=== PATIENT | female | born 1945 | race Caucasian/White ===

== ENCOUNTER 2021-06-08 10:33 | Inpatient (IN) ==
--- NOTE | 2021-06-08 12:07 | XRay Report ---
XR chest 1V portable CLINICAL HISTORY: Atypical chest pain COMPARISON STUDY: None FINDINGS: The heart is enlarged. There is aortic tortuosity/ectasia. There is a small right pleural e ffusion with associated right basilar parenchymal opacities. There is mild elevation of interstitium. An element of mild pulmonary vascular congestion cannot be excluded. Arthritic changes are present w ithin the shoulders with narrowing of the humeral acromial distances suggesting chronic rotator cuff tear/degeneration[ IMPRESSION: 1. Cardiomegaly 2. Small right pleural effusion with associated right basilar atelectasis/consolidation 3. Mild elevation of interstitium. Correlate clinically for evidence of mild pulmonary vascular conge stion ACT 112: Negative or not required by law. Electronically signed by: Myles Stallworth M.D. 06/08/2021 12:05 PM
[2021-06-08 12:42] LABS: Basophils # (auto) 0.02 K/uL (0-0.2); Basophils % (auto) 0.2 %; Eosinophils # (auto) 0.05 K/uL (0-0.5); Eosinophils % (auto) 0.5 %; Hematocrit (blood only) 45.9 % (37-47); Hemoglobin 14.8 g/dL (12.0-16.0); Immature Granulocytes # (auto) 0.01 K/uL (0.00-0.02); Immature Granulocytes % (auto) 0.1 %; Lymphocytes # (auto) 2.37 K/uL (1.2-3.4); Lymphocytes % (auto) 23.7 %; Mean Corpuscular Hemoglobin 32.1 pg (25-34); Mean Corpuscular Hgb Conc 32.2 g/dL (32-36); Mean Corpuscular Volume 99.6 fL (80-100); Monocytes # (auto) 0.68 K/uL (0.11-0.59); Monocytes % (auto) 6.8 %; Neutrophils # (auto) 6.85 K/uL (1.4-6.5); Neutrophils % (auto) 68.7 %; Platelet Count 360 K/uL (130-400); RDW Coefficient of Variation 14.3 % (11.5-14.5); Red Blood Count 4.61 M/uL (4.2-5.4); White Blood Count 9.98 K/uL (4.8-10.8)
[2021-06-08 12:54] LABS: Prothrombin Time 10.1 Seconds (9.0-12.0)
[2021-06-08 13:02] LABS: BUN Creatinine Ratio 18.5 (10-20); Bilirubin Direct 0.2 mg/dl (0-0.2); Calcium 9.9 mg/dl (8.5-10.1); Creatinine Clr Calc Pharmacy 45.2 ml/min; Est GFR (African American) 78.8 ml/min; Magnesium 2.4 mg/dl (1.8-2.4); Potassium 4.4 mmol/L (3.5-5.1)
[2021-06-08 13:10] LABS: Bilirubin,Total 0.9 mg/dl (0.2-1); Globulin 4.1 gm/dl (2.5-4.0); Phosphorus 3.2 mg/dl (2.5-4.9); Total Protein 8.1 gm/dl (6.4-8.2); Troponin I 0.03 ng/ml (0-0.045)
--- NOTE | 2021-06-08 14:05 | Electrocardiogram Report ---
Test Reason : Blood Pressure : / mmHG Vent. Rate : 083 BPM Atrial Rate : 083 BPM P-R Int : 162 ms QRS Dur : 122 ms QT Int : 400 ms P-R-T Axes : 035 -65 090 degrees QTc Int : 470 ms Sinus rhythm with Premature atrial complexes Possible Left atrial enlargement Left axis deviation Inferior infarct , age undetermined Anterolateral infarct , age undetermined Non-specific intra-ventricular conduction delay Abnormal ECG No previous ECGs available Confirmed by Ervin Burgos ([id number]) on 06/08/2021 2:05:01 PM Referred By: REFERRED SELF Confirmed By:Ervin Burgos
[2021-06-08] MEDS ORDERED: ALPRAZolam 0.25 MG TABLET PO STA (14:23)
[2021-06-08] MEDS ORDERED: HYDROCODONE/ACETAMOPHEN 5/325MG TAB PO STA (14:33)
[2021-06-08] MEDS ORDERED: ALPRAZolam 0.5 MG TABLET PO STA (14:47)
[2021-06-08] MEDS ORDERED: ALPRAZolam 0.5 MG TABLET ONE (14:48)
[2021-06-08] MEDS ORDERED: OPTIRAY 320 125ml IV ONE (15:31)
--- NOTE | 2021-06-08 15:38 | CT Scan Report ---
CT ANGIOGRAM OF THE CHEST CLINICAL HISTORY: Shortness of breath. Possible pulmonary embolism COMPARISON STUDY: Chest x-ray dated 06/08/2021 TECHNIQUE: Following the IV administration of 118 mL of Optiray, CT angiogram of the thorax was perfo rmed from the thoracic inlet to the lung bases utilizing the pulmonary embolus protocol. Images are r eviewed in the axial, sagittal, and coronal planes. IV contrast was administered without complication . MIP imaging was performed. A dose lowering technique was utilized adhering to the principles of [place]. CT DOSE: 278.95 mGy.cm FINDINGS: No pathologically enlarged axillary mediastinal or hilar lymph nodes were visualized. There is ectasia of descending thoracic aorta which measures 38 mm. There are no pulmonary artery filling defects to indicate acute pulmonary embolism. The heart is enlarged. Postsurgical changes involve the aortic valve. There is reflux of contrast int o the inferior vena cava and hepatic veins suggesting elevated right heart pressures. There is a smal l right pleural effusion and trace left pleural effusion. There are right basilar opacities, likely a telectatic. There is respiratory motion artifact. IMPRESSION: 1. No evidence of acute pulmonary embolism 2. Bilateral pleural effusions right greater than left 3. Right basilar opacities likely atelectatic 4. Motion degraded study. ACT 112: Negative or not required by law. Electronically signed by: Myles Stallworth M.D. 06/08/2021 3:37 PM
[2021-06-08 16:02] LABS: Appearance Urine Clear (Clear); Bilirubin Urine Negative (Negative); Blood Urine Negative (Negative); Color Urine Yellow; Glucose Urine UA Negative (Negative); Ketones Urine Negative (Negative); Leukocyte Esterase Urine Negative (Negative); Nitrite Urine Negative (Negative); Protein Urine Negative (Negative); Specific Gravity Urine 1.007 (1.000-1.030); Urobilinogen Urine Negative (Negative); pH Urine 7.5 (4.5-7.5)
[2021-06-08] MEDS ORDERED: ACETAMINOPHEN 325 MG TAB PO PRN (16:48)
[2021-06-08] MEDS ORDERED: FUROSEMIDE 40 MG in SYRINGE 0 ML IV ONE (17:00)
--- NOTE | 2021-06-08 17:18 | History & Physical Report ---
Date of Service June 08, 2021 Assessment & Plan (1) Cardiomyopathy: (2) History of transcatheter aortic valve replacement (TAVR): Plan: -Admit to telemetry -Patient presenting from home with reports of worsening shortness of breath x 1 month -History of dilated cardiomyopathy diagnosed in 2019 at the time of TAVR with the EF 20 to 30%, EF improved to 45 to 49% after surgery. Recently established with cardiology at [facility], repeat echocardiogram on 06/03/2021 showed EF 25 to 29%. -Saturating well on room air, CTA chest shows bilateral pleural effusions, right greater than left -Hold home furosemide and spironolactone and start Lasix 40 mg IV twice daily -Continue beta-sky -Cardiology consult, input appreciated (3) CAD (coronary artery disease): Plan: -Cardiac cath 2018 showed moderate nonobstructive CAD -Appears stable, no reports of chest pain -Continue aspirin and beta-sky (patient is statin intolerant) (4) HTN (hypertension): Plan: -BP controlled, continue metoprolol (5) Anxiety: Plan: -Patient seems to have significant underlying anxiety which may be partly contributing to her shortness of breath -Anxiety typically managed with 2-4 doses of alprazolam/day at home -Discussed with patient, agreeable to psychiatry consult (6) DVT prophylaxis: Plan: -SQ Lovenox Admission and Anticipated Discharge Date Admission Date: June 08, 2021 History of Present Illness Chief Complaint: Shortness of breath Primary Care Provider: Dr. Idalia Gan 76-year-old female with PMH nonobstructive CAD, history of TAVR, cardiomyopathy, LBBB, anxiety, and other problems listed below who presents the ED for evaluation of shortness of breath. Patient reports worsening shortness of breath over the past 1 month. Patient previously followed with cardiology at [facility], recently establish cardiology care at [facility]. Patient with history of dilated cardiomyopathy at the time of TAVR in 2019 with EF 20-30%, improved to 45 to 49% after surgery. Recent outpatient echo on 06/03/2021 showed EF 25 to 29%, left atrium severely enlarged, grade 3 diastolic dysfunction, moderate to severe pulmonary hy pertension. Patient was offered hospitalization however declined at that time. Patient reports progressively worsening shortness of breath for the past 1 month. Sometimes patient feels as though her shortness of breath is due to anxiety. She denies chest pain. No lightheadedness, dizziness, diaphoresis, syncopal events. Denies lower extremity edema and orthopnea. She does not weigh herself on a day-to-day basis. Denies any other recent illnesses, fevers, chills. No abdominal pain, nausea, vomiting, diarrhea. Denies urinary symptoms. In the ED, patient is saturating well on room air. CTA chest is negative for pulmonary embolism however shows bilateral pleural effusions, right greater than left. Patient was given her home dose of alprazolam. Allergies Allergy/AdvReac Type Severity Reaction Status Date / Time rosuvastatin Allergy Severe Chills Unverified 06/08/21 14:54 ergocalciferol (vitamin D2) Allergy Unknown Unknown Unverified 06/08/21 16:56 [From Vitamin D2] ibuprofen Allergy Unknown Unknown Unverified 06/08/21 16:56 metoclopramide [From Reglan] Allergy Unknown Unknown Unverified 06/08/21 16:56 naproxen Allergy Unknown Unknown Unverified 06/08/21 16:56 Penicillins Allergy Unknown Unknown Unverified 06/08/21 16:56 tamsulosin Allergy Unknown Unknown Unverified 06/08/21 16:56 triamcinolone Allergy Unknown Unknown Unverified 06/08/21 16:56 Home Medications Medication Instructions Recorded Confirmed Type alprazolam 0.25 mg tablet 0.25 mg PO TID PRN 06/08/21 06/08/21 History aspirin 81 mg tablet,delayed 81 mg PO DAILY 06/08/21 06/08/21 History release (Aspirin Low Dose) furosemide 40 mg tablet 40 mg PO QAM 06/08/21 06/08/21 History furosemide 40 mg tablet (Lasix) 20 mg PO QDL 06/08/21 06/08/21 History hydrocodone 5 mg-acetaminophen 325 1 tab PO BID PRN 06/08/21 06/08/21 History mg tablet metoprolol succinate 25 mg capsule 12.5 mg PO DAILY 06/08/21 06/08/21 History sprinkle, ext. release 24 hr potassium chloride 20 mEq 40 meq PO DAILY 06/08/21 06/08/21 History tablet,extended release spironolactone 25 mg tablet 12.5 mg PO DAILY 06/08/21 06/08/21 History Past Med/Surg History Medical History Anxiety CAD (coronary artery disease) Preop TAVR cath 2019-moderate nonobstructive CAD Cardiomyopathy At the time of TAVR, EF 20 to 30%, improved to 45 to 49% post surgery History of transcatheter aortic valve replacement (TAVR) HTN (hypertension) LBBB (left bundle branch block) Family History Mother No problems noted. Father No problems noted. Social History Smoking Status: Former smoker Hx Alcohol Use: No Hx Substance Use: No Preferred Language: Tamaz[place] Communication Ability: Effective Beliefs That Will Affect Care: None Other Information That Helps Us Care for You: No Feels Safe at Home: Yes Assistive Devices: Cane, Denture - Upper, Denture - Lower and Glasses Review of Systems Review of Systems: ROS per HPI, all other systems reviewed and negative Physical Exam Constitutional: WD/WN, vitals as above Eyes: PERRL, conjunctivae normal, anicteric sclerae ENMT: external ear and nose normal, oropharynx normal Respiratory: normal respiratory effort and + respiratory distress Auscultation: + diminished lung sounds (Bilaterally) Cardiovascular: Rate/Rhythm: regular rate and regular rhythm Vessels: normal peripheral pulses Extremities: no edema Gastrointestinal (Abdomen): normal bowel sounds, soft, nontender, no hepatosplenomegaly Musculoskeletal: no cyanosis or clubbing, extremities motor strength 5/5 Skin: no rashes, warm and dry Neurologic: PERRL, EOMI, accommodation nl, no face palsy, no dysarthria Psychiatric: Orientation: alert and oriented x 3 Affect: + anxious affect Results & Data Results & Data ([facility]) Vital Signs (Past 12 Hours) Vital Signs Temp Pulse Pulse Resp BP BP Pulse Ox 06/08/21 16:35 36.4 C L 90 18 119/75 94 06/08/21 15:00 85 29 H 136/73 94 06/08/21 14:07 90 24 06/08/21 13:47 83 21 06/08/21 13:00 77 20 06/08/21 12:43 82 22 06/08/21 11:39 99 06/08/21 11:30 92 H 26 H 06/08/21 11:21 90 25 H 06/08/21 10:55 36.9 C 76 19 118/64 97 Laboratory Results Short CBC 06/08/21 Range/Units 12:25 WBC 9.98 (4.8-10.8) K/uL Hgb 14.8 (12.0-16.0) g/dL Hct 45.9 (37-47) % Plt Count 360 (130-400) K/uL BMP 06/08/21 12:24 Sodium 137 Potassium 4.4 Chloride 102 Carbon Dioxide 29 BUN 16 Creatinine 0.84 Glucose 111 H Calcium 9.9 Cardiac Enzymes 06/08/21 Range/Units 12:24 Troponin I 0.030 (0-0.045) ng/ml Liver Function 06/08/21 Range/Units 12:24 Total Bilirubin 0.9 (0.2-1) mg/dl Direct Bilirubin 0.2 (0-0.2) mg/dl AST 39 H (15-37) U/L ALT 54 (12-78) U/L Alkaline Phosphatase 101 (45-117) U/L Albumin 4.0 (3.4-5.0) gm/dl Urine 06/08/21 Range/Units 15:26 Urine Color Yellow Urine Appearance Clear (Clear) Urine pH 7.5 (4.5-7.5) Ur Specific [place] 1.007 (1.000-1.030) Urine Protein Negative (Negative) Urine Glucose (UA) Negative (Negative) Diagnostic Findings Chest X-Ray 06/08/21 11:39 XR chest 1V portable CLINICAL HISTORY: Atypical chest pain COMPARISON STUDY: None FINDINGS: The heart is enlarged. There is aortic tortuosity/ectasia. There is a small right pleural effusion with associated right basilar parenchymal opacities. There is mild elevation of interstitium. An element of mild pulmonary vascular congestion cannot be excluded. Arthritic changes are present within the shoulders with narrowing of the humeral acromial distances suggesting chronic rotator cuff tear/degeneration[ IMPRESSION: 1. Cardiomegaly 2. Small right pleural effusion with associated right basilar atelectasis/consolidation 3. Mild elevation of interstitium. Correlate clinically for evidence of mild pulmonary vascular congestion ACT 112: Negative or not required by law. Electronically signed by: Myles Stallworth M.D. 06/08/2021 12:05 PM Chest CTA 06/08/21 14:21 CT ANGIOGRAM OF THE CHEST CLINICAL HISTORY: Shortness of breath. Possible pulmonary embolism COMPARISON STUDY: Chest x-ray dated 06/08/2021 TECHNIQUE: Following the IV administration of 118 mL of Optiray, CT angiogram of the thorax was performed from the thoracic inlet to the lung bases utilizing the pulmonary embolus protocol. Images are reviewed in the axial, sagittal, and coronal planes. IV contrast was administered without complication. MIP imaging was performed. A dose lowering technique was utilized adhering to the prin ciples of [place]. CT DOSE: 278.95 mGy.cm FINDINGS: No pathologically enlarged axillary mediastinal or hilar lymph nodes were visualized. There is ectasia of descending thoracic aorta which measures 38 mm. There are no pulmonary artery filling defects to indicate acute pulmonary embolism. The heart is enlarged. Postsurgical changes involve the aortic valve. There is reflux of contrast into the inferior vena cava and hepatic veins suggesting elevated right heart pressures. There is a small right pleural effusion and trace left pleural effusion. There are right basilar opacities, likely atelectatic. There is respiratory motion artifact. IMPRESSION: 1. No evidence of acute pulmonary embolism 2. Bilateral pleural effusions right greater than left 3. Right basilar opacities likely atelectatic 4. Motion degraded study. ACT 112: Negative or not required by law. Electronically signed by: Myles Stallworth M.D. 06/08/2021 3:37 PM Code Status & VTE Plan Code Status Patient is a full code as per my discussion with her. VTE Prophylaxis Plan VTE Prophylaxis will be ordered: Yes Supervising Physician Co-Signing Physician Notes Attending Addendum: care coordinated with LAINE perera please refer to her notes for full details, I agree with her notes patient seen and examined, records reviewed by myself as well on exam, patient seen sitting up in bed, not in distress States that she feels tired, has been walking to the bathroom to void after Lasix Has minimal dyspnea on exertion No chest pain, headache, dizziness, palpitations no other symptoms VS noted and reviewed oriented x3, not in distress, speaks in sentences with no effort nor accessory muscle use normal rate, regular rhythm, no murmurs Positive mild crackles bilateral bases, no wheezing non distended, soft, nontender no bipedal edema, erythema, warmth no neuro deficits WBC 9.9 [address] chest: Bilateral pleural effusion right greater than left ASSESSMENT AND PLAN Acute on chronic diastolic CHF exacerbation Lasix 40 mg IV twice daily Monitor diuresis Acid Treater consulted History of CAD Denies chest pain at this time Continue aspirin and metoprolol other diagnoses and plan of care as per LAINE perera plan of care discussed with patient in detail and at length all questions answered she is understanding, agreeable, comfortable with the plan of care Juancho Hudson MD
--- NOTE | 2021-06-08 19:07 | Emergency Department Note ---
Impression & Plan Dyspnea on minimal exertion, History of transcatheter aortic valve replacement (TAVR), Cardiomyopathy, LBBB (left bundle branch block), Anxiety ED Provider Note NAME: LIOR WOMACK AGE: 76 SEX: F ARRIVES VIA: Walk-In INFORMANT: Patient, ED PROVIDER(S): Phillip Francois MD CHIEF COMPLAINT: SOB PLAN: Disposition: Admit MEDICAL DECISION MAKING: The patient is a pleasant 76-year-old woman with a past medical history of severe aortic stenosis status post TAVR in October 2019, nonobstructive CAD, left bundle branch block, hypertension, hld, dilated cardiomyopathy with EF of 20-30% which improved to 45-49% post TAVR, history of pulmonary hypertension, severe anxiety Xanax, chronic pain on chronic Jamison who presents to the em ergency department with ongoing shortness of breath with minimal exertion. Patient presents to [facility] in setting of being seen by [facility] cardiology last week in the setting of recently establishing care with their office approximately a month ago for a second opinion per records. Patient and her son at the bedside are poor historians regarding her history and transitioning care. Per records the patient did have an updated echo which showed reduction in the patient's EF which was previously considered to have recovered somewhat. Per the patient and records the patient was offered the option for hospitalization at that time but she had declined. However given her ongoing symptoms she is agreeable to admission. Otherwise she denies fevers, chills, cough, congestion, nausea, vomiting, diarrhea or urinary symptoms. On arrival the patient is anxious appearing, dyspneic but no acute distress, afebrile with stable vital signs. While her O2 saturation was 93% or greater on room air she was provided with O2 via nasal cannula for comfort. On exam she does appear euvolemic without significant lower extremity edema. EKG demonstrates conduction delay setting of known history of left bundle branch block, no sgarbossa criteria. No prior immediately available for comparison. Chest x-ray demonstrates cardiomegaly with small right pleural effusion with associated right basilar atelectasis/consolidation. Interstitial thickening is noted. WBC, H/H and platelets within normal limits. Chemistry without metabolic acidosis. Electrolytes and LFTs without significant abnormality. Troponin 0.03, within normal limits. BNP 4900 without prior values for comparison. UA without convincing evidence of infection. COVID-19 PCR was negative. Given the patient's continued dyspnea on minimal exertion with records demonstrating recurrence of decreased EF, patient was in agreement with plan for admission. Of note, the patient did become acutely anxious and upset that she did not rece tao her Xanax and Jamison in a timely manner. It was explained that her medications were ordered once confirmed and her initial testing had resulted. Ultimately she did agree to proceed with her admission after she did receive her Xanax and was calmed. CT of the chest was performed per discussion with admitting team and this was negative for PE. Case was discussed with Feng Ray, with Dr. Tristan bagley who will evaluate the patient for admission. Triage Nursing notes reviewed and agree them. Prior medical records reviewed Vital Signs: reviewed and remarkable for no significant abnormalities Differential diagnosis: Reactive airway disease, pneumonia, pneumothorax, COPD, CHF, infections, cardiac ischemia, pulmonary embolism, musculoskeletal, gastrointestinal, as well as other pathologies. ER treatment provided: See below. Diagnostics interpreted by me: ECG: Sinus rhythm with PACs, 83 bpm, conduction delay noted with QRS of 122 in the setting of history of left bundle branch block, no sgarbossa criteria. Cardiac Monitoring: An order for continuous cardiac monitoring was placed and demonstrated Sinus rhythm with PACs, 83 bpm. Laboratory studies: See below Imaging studies: See below Consultation(s): Feng Ray, with Dr. Tristan bagley who will evaluate the patient for admission. HPI: The patient is a pleasant 76-year-old woman with a past medical history of severe aortic stenosis status post TAVR in October 2019, nonobstructive CAD, left bundle branch block, hypertension, hld, dilated cardiomyopathy with EF of 20-30% which improved to 45-49% post TAVR, history of pulmonary hypertension, severe anxiety Xanax, chronic pain on chronic Jamison who presents to the emergency department with ongoing shortness of breath with minimal exertion. Patient presents to [facility] in setting of being seen by [facility] last week in the setting of recently establishing care with their office approximately a month ago for a second opinion per records. Patient and her son at the bedside are poor historians regarding her history and transitioning care. Per records the patient did have an updated echo which showed reduction in the patient's EF which was previously considered to have recovered somewhat. Per the patient and records the patient was offered the option for hospitalization at that time but she had declined. However given her ongoing symptoms she is agreeable to admission. Otherwise she denies fevers, chills, cough, congestion, nausea, vomiting, diarrhea or urinary symptoms. ROS: See above HPI for pertinent positives & negatives. A total of 10 systems reviewed and were otherwise negative. PAST MEDICAL HISTORY:See Below PAST SURGICAL HISTORY:See Below FAMILY HISTORY:See Below SOCIAL HISTORY:See Below HOME MEDICATIONS:See Below ALLERGIES:See Below VITALS:See Below PHYSICAL EXAMINATION: GENERAL: Awake, alert, anxious/dyspneic-appearing, in no distress HENT: Normocephalic, atraumatic. Oropharynx unremarkable. EYES: Normal conjunctiva. Sclera non-icteric. NECK: Supple. No nuchal rigidity. FROM. No JVD. RESPIRATORY: Clear to auscultation. CARDIAC: Regular rate, normal rhythm. Extremities warm and well perfused. Pulses equal. ABDOMEN: Soft, non-distended. No tenderness to palpation. No rebound or guarding. No masses. RECTAL: Deferred. MUSCULOSKELETAL: Chest examination reveals no tenderness. The back is symmetrical on inspection without obvious abnormality. There is no CVA tendernes s to palpation. No joint edema. LOWER EXTREMITIES: Calves are equal size bilaterally and non-tender. No edema. No discoloration. NEURO: Normal sensorium. No sensory or motor deficits noted. SKIN: No rash or jaundice noted. Phillip Francois MD Past Med/Surg History Medical History Anxiety CAD (coronary artery disease) Preop TAVR cath 2019-moderate nonobstructive CAD Cardiomyopathy At the time of TAVR, EF 20 to 30%, improved to 45 to 49% post surgery History of transcatheter aortic valve replacement (TAVR) HTN (hypertension) LBBB (left bundle branch block) Family History Mother No problems noted. Father No problems noted. Social History Smoking Status: Former smoker Hx Alcohol Use: No Hx Substance Use: No Preferred Language: Botswanan Communication Ability: Effective Beliefs That Will Affect Care: None Other Information That Helps Us Care for You: No Feels Safe at Home: Yes Assistive Devices: Cane, Denture - Upper, Denture - Lower and Glasses Allergies Allergies Allergy/AdvReac Type Severity Reaction Status Date / Time rosuvastatin Allergy Severe Chills Unverified 06/08/21 14:54 ergocalciferol (vitamin D2) Allergy Unknown Unknown Unverified 06/08/21 16:56 [From Vitamin D2] ibuprofen Allergy Unknown Unknown Unverified 06/08/21 16:56 metoclopramide [From Reglan] Allergy Unknown Unknown Unverified 06/08/21 16:56 naproxen Allergy Unknown Unknown Unverified 06/08/21 16:56 Penicillins Allergy Unknown Unknown Unverified 06/08/21 16:56 tamsulosin Allergy Unknown Unknown Unverified 06/08/21 16:56 triamcinolone Allergy Unknown Unknown Unverified 06/08/21 16:56 Home Meds Home Medications Medication Instructions Recorded Confirmed alprazolam 0.25 mg tablet 0.25 mg PO TID PRN 06/08/21 06/08/21 aspirin 81 mg tablet,delayed 81 mg PO DAILY 06/08/21 06/08/21 release (Aspirin Low Dose) furosemide 40 mg tablet 40 mg PO QAM 06/08/21 06/08/21 furosemide 40 mg tablet (Lasix) 20 mg PO QDL 06/08/21 06/08/21 hydrocodone 5 mg-acetaminophen 325 1 tab PO BID PRN 06/08/21 06/08/21 mg tablet metoprolol succinate 25 mg capsule 12.5 mg PO DAILY 06/08/21 06/08/21 sprinkle, ext. release 24 hr potassium chloride 20 mEq 40 meq PO DAILY 06/08/21 06/08/21 tablet,extended release spironolactone 25 mg tablet 12.5 mg PO DAILY 06/08/21 06/08/21 Results & Data (ED) Vital Signs Vital Signs - 24 hr 06/08/21 10:55 06/08/21 10:58 06/08/21 11:21 Temperature 36.9 C Temperature Source Temporal Artery Scan Pulse Rate 76 90 Respiratory Rate 19 25 H Respiratory Effort / Characteristics Non-Labored Respiratory Depth Normal Blood Pressure 118/64 Blood Pressure Mean 82 Pulse Oximetry 97 Oxygen Delivery Method Room Air Room Air Oxygen Flow Rate Sepsis Recent Fever Within 48 Hours No Sepsis New/Unexplained Change in Mental Status N/A Sepsis Action Taken by Nursing No Action Required 06/08/21 11:30 06/08/21 11:39 06/08/21 12:43 Temperature Temperature Source Pulse Rate 92 H 82 Respiratory Rate 26 H 22 Respiratory Effort / Characteristics Respiratory Depth Blood Pressure Blood Pressure Mean Pulse Oximetry 99 Oxygen Delivery Method Nasal Cannula Oxygen Flow Rate 2 Sepsis Recent Fever Within 48 Hours Sepsis New/Unexplained Change in Mental Status Sepsis Action Taken by Nursing 06/08/21 13:00 06/08/21 13:47 06/08/21 14:07 Temperature Temperature Source Pulse Rate 77 83 90 Respiratory Rate 20 21 24 Respiratory Effort / Characteristics Respiratory Depth Blood Pressure Blood Pressure Mean Pulse Oximetry Oxygen Delivery Method Oxygen Flow Rate Sepsis Recent Fever Within 48 Hours Sepsis New/Unexplained Change in Mental Status Sepsis Action Taken by Nursing Laboratory Data Attestation: I reviewed the patient's lab results. Result diagrams: 06/08/21 12:25 06/08/21 12:24 Lab Results 06/08/21 06/08/21 06/08/21 Range/Units 12:24 12:24 12:25 WBC 9.98 (4.8-10.8) K/uL RBC 4.61 (4.2-5.4) M/uL Hgb 14.8 (12.0-16.0) g/dL Hct 45.9 (37-47) % MCV 99.6 (80-100) fL MCH 32.1 (25-34) pg MCHC 32.2 (32-36) g/dL RDW Std Deviation 52.0 H (36.4-46.3) fL RDW Coeff of Carol 14.3 (11.5-14.5) % Plt Count 360 (130-400) K/uL MPV 11.0 H (7.4-10.4) fL Immature Gran % (Auto) 0.1 % Neut % (Auto) 68.7 % Lymph % (Auto) 23.7 % Carlton % (Auto) 6.8 % Eos % (Auto) 0.5 % Baso % (Auto) 0.2 % Neut # (Auto) 6.85 H (1.4-6.5) K/uL Lymph # (Auto) 2.37 (1.2-3.4) K/uL Carlton # (Auto) 0.68 H (0.11-0.59) K/uL Eos # (Auto) 0.05 (0-0.5) K/uL Baso # (Auto) 0.02 (0-0.2) K/uL Immature Gran # (Auto) 0.01 (0.00-0.02) K/uL PT 10.1 (9.0-12.0) Seconds INR 1.0 (0.9-1.1) APTT 26.0 (21.0-31.0) Seconds PTT Ratio 1.0 Sodium 137 (136-145) mmol/L Potassium 4.4 (3.5-5.1) mmol/L Chloride 102 (98-107) mmol/L Carbon Dioxide 29 (21-32) mmol/L Anion Gap 7.0 (3-11) BUN 16 (7-18) mg/dl Creatinine 0.84 (0.6-1.2) mg/dl Est Cr Clr Drug Dosing 45.2 ml/min Est GFR ( Amer) 78.8 ml/min Est GFR (Non-Af Amer) 68.0 ml/min BUN/Creatinine Ratio 18.5 (10-20) Glucose 111 H (70-99) mg/dl Calcium 9.9 (8.5-10.1) mg/dl Phosphorus 3.2 (2.5-4.9) mg/dl Magnesium 2.4 (1.8-2.4) mg/dl Total Bilirubin 0.9 (0.2-1) mg/dl Direct Bilirubin 0.2 (0-0.2) mg/dl AST 39 H (15-37) U/L ALT 54 (12-78) U/L Alkaline Phosphatase 101 (45-117) U/L Troponin I 0.030 (0-0.045) ng/ml NT-Pro-B Natriuret Pep 4935 H (0-900) pg/ml Total Protein 8.1 (6.4-8.2) gm/dl Albumin 4.0 (3.4-5.0) gm/dl Globulin 4.1 H (2.5-4.0) gm/dl Albumin/Globulin Ratio 1.0 (0.9-2) Lipase 87 (73-393) U/L TSH 2.000 (0.300-4.500) uIu/ml COVID-19 Eval Order SARS-CoV-2 (PCR) (Negative) 06/08/21 06/08/21 Range/Units 12:25 12:25 WBC (4.8-10.8) K/uL RBC (4.2-5.4) M/uL Hgb (12.0-16.0) g/dL Hct (37-47) % MCV (80-100) fL MCH (25-34) pg MCHC (32-36) g/dL RDW Std Deviation (36.4-46.3) fL RDW Coeff of Carol (11.5-14.5) % Plt Count (130-400) K/uL MPV (7.4-10.4) fL Immature Gran % (Auto) % Neut % (Auto) % Lymph % (Auto) % Carlton % (Auto) % Eos % (Auto) % Baso % (Auto) % Neut # (Auto) (1.4-6.5) K/uL Lymph # (Auto) (1.2-3.4) K/uL Carlton # (Auto) (0.11-0.59) K/uL Eos # (Auto) (0-0.5) K/uL Baso # (Auto) (0-0.2) K/uL Immature Gran # (Auto) (0.00-0.02) K/uL PT (9.0-12.0) Seconds INR (0.9-1.1) APTT (21.0-31.0) Seconds PTT Ratio Sodium (136-145) mmol/L Potassium (3.5-5.1) mmol/L Chloride (98-107) mmol/L Carbon Dioxide (21-32) mmol/L Anion Gap (3-11) BUN (7-18) mg/dl Creatinine (0.6-1.2) mg/dl Est Cr Clr Drug Dosing ml/min Est GFR ( Amer) ml/min Est GFR (Non-Af Amer) ml/min BUN/Creatinine Ratio (10-20) Glucose (70-99) mg/dl Calcium (8.5-10.1) mg/dl Phosphorus (2.5-4.9) mg/dl Magnesium (1.8-2.4) mg/dl Total Bilirubin (0.2-1) mg/dl Direct Bilirubin (0-0.2) mg/dl AST (15-37) U/L ALT (12-78) U/L Alkaline Phosphatase (45-117) U/L Troponin I (0-0.045) ng/ml NT-Pro-B Natriuret Pep (0-900) pg/ml Total Protein (6.4-8.2) gm/dl Albumin (3.4-5.0) gm/dl Globulin (2.5-4.0) gm/dl Albumin/Globulin Ratio (0.9-2) Lipase (73-393) U/L TSH (0.300-4.500) uIu/ml COVID-19 Eval Order Covid19 at [facility] SARS-CoV-2 (PCR) NEGATIVE (Negative) Administered Medications Hydrocodone Bitart/Acetaminophen (Hydrocodone/Acetamophen 5/325mg Tab) 1 tab PO BID PRN PRN Reason: Pain Stop: 06/22/21 16:47 Last Admin: 06/08/21 21:09 Dose: 1 tab Documented by: [id number] Alprazolam (Alprazolam 0.25 Mg Tablet) 0.25 mg PO TID PRN PRN Reason: Anxiety Stop: 07/08/21 16:47 Last Admin: 06/08/21 19:18 Dose: 0.25 mg Documented by: [id number] Docusate Sodium (Docusate Sodium 100 Mg Cap) 100 mg PO BID SILVANO Stop: 07/08/21 20:59 Last Admin: 06/08/21 19:18 Dose: 100 mg Documented by: [id number] Enoxaparin Sodium (Enoxaparin Inj 40 Mg/0.4 Ml Syr) 40 mg SQ Q24H SILVANO Stop: 07/08/21 20:59 Last Admin: 06/08/21 19:19 Dose: 40 mg Documented by: [id number] Polyethylene Glycol (Polyethylene (Miralax) 17 Gm Pack) 17 gm PO BID SILVANO Stop: 07/08/21 20:59 Last Admin: 06/08/21 19:19 Dose: 17 gm Documented by: [id number] Discontinued Medications Hydrocodone Bitart/Acetaminophen (Hydrocodone/Acetamophen 5/325mg Tab) 1 tab PO NOW STA Stop: 06/08/21 14:34 Last Admin: 06/08/21 14:57 Dose: 1 tab Documented by: [id number] Alprazolam (Alprazolam 0.25 Mg Tablet) 0.25 mg PO NOW STA Stop: 06/08/21 14:24 Last Admin: 06/08/21 14:55 Dose: Not Given Documented by: [id number] Alprazolam (Alprazolam 0.5 Mg Tablet) 0.25 mg PO NOW STA Stop: 06/08/21 14:48 Last Admin: 06/08/21 14:56 Dose: Not Given Documented by: [id number] Alprazolam (Alprazolam 0.5 Mg Tablet) Confirm Administered Dose 0.5 mg .ROUTE .STK-MED ONE Stop: 06/08/21 14:49 Last Admin: 06/08/21 14:56 Dose: 0.25 mg Documented by: [id number] Docusate Sodium (Docusate Sodium 100 Mg Cap) Confirm Administered Dose 100 mg PO .STK-MED ONE Stop: 06/08/21 19:16 Last Admin: 06/08/21 19:20 Dose: Not Given Documented by: [id number] Furosemide 40 mg/ Syringe 4 mls @ 4 mls/min IV 1700 ONE Stop: 06/08/21 17:01 Last Admin: 06/08/21 17:11 Dose: 4 mls/min Documented by: [id number] Ioversol (Optiray 320 125ml) 118 ml IV ONCE ONE Stop: 06/08/21 15:32 Last Admin: 06/08/21 15:31 Dose: 118 ml Documented by: [id number] Polyethylene Glycol (Polyethylene (Miralax) 17 Gm Pack) Confirm Administered Dose 17 gm .ROUTE .STK-MED ONE Stop: 06/08/21 19:16 Last Admin: 06/08/21 19:20 Dose: Not Given Documented by: [id number] Imaging Data Radiologist's Impression: Chest X-Ray 06/08/21 11:39 XR chest 1V portable CLINICAL HISTORY: Atypical chest pain COMPARISON STUDY: None FINDINGS: The heart is enlarged. There is aortic tortuosity/ectasia. There is a small right pleural effusion with associated right basilar parenchymal opacities. There is mild elevation of interstitium. An element of mild pulmonary vascular congestion cannot be excluded. Arthritic changes are present within the shoulders with narrowing of the humeral acromial distances suggesting chronic rotator cuff tear/degeneration[ IMPRESSION: 1. Cardiomegaly 2. Small right pleural effusion with associated right basilar atelectasis/consolidation 3. Mild elevation of interstitium. Correlate clinically for evidence of mild pulmonary vascular congestion ACT 112: Negative or not required by law. Electronically signed by: Myles Stallworth M.D. 06/08/2021 12:05 PM Chest CTA 06/08/21 14:21 CT ANGIOGRAM OF THE CHEST CLINICAL HISTORY: Shortness of breath. Possible pulmonary embolism COMPARISON STUDY: Chest x-ray dated 06/08/2021 TECHNIQUE: Following the IV administration of 118 mL of Optiray, CT angiogram of the thorax was performed from the thoracic inlet to the lung bases utilizing the pulmonary embolus protocol. Images are reviewed in the axial, sagittal, and coronal planes. IV contrast was administered without complication. MIP imaging was performed. A dose lowering technique was utilized adhering to the principles of ALARA. CT DOSE: 278.95 mGy.cm FINDINGS: No pathologically enlarged axillary mediastinal or hilar lymph nodes were visualized. There is ectasia of descending thoracic aorta which measures 38 mm. There are no pulmonary artery filling defects to indicate acute pulmonary embolism. The heart is enlarged. Postsurgical changes involve the aortic valve. There is reflux of contrast into the inferior vena cava and hepatic veins suggesting elevated right heart pressures. There is a small right pleural effusion and trace left pleural effusion. There are right basilar opacities, likely atelectatic. There is respiratory motion artifact. IMPRESSION: 1. No evidence of acute pulmonary embolism 2. Bilateral pleural effusions right greater than left 3. Right basilar opacities likely atelectatic 4. Motion degraded study. ACT 112: Negative or not required by law. Electronically signed by: Myles Stallworth M.D. 06/08/2021 3:37 PM Discharge Plan Visit Data Chief Complaint: Shortness of Breath/Dyspnea Stated Complaint: SOB, HX OF CARDIAC ISSUES ED Provider: Phillip Francois Discharge Problem: Dyspnea on minimal exertion, History of transcatheter aortic valve replacement (TAVR), Cardiomyopathy, LBBB (left bundle branch block), Anxiety Patient Disposition: Admitted As Inpatient Discharge Instructions Interventions: ED Discharge Assessment Last Done: 06/08/21 16:21 Discharge Problem: Cardiomyopathy Qualifiers: Cardiomyopathy type: unspecified Qualified Code(s): I42.9 - Cardiomyopathy, unspecified
[2021-06-08] MEDS ORDERED: DOCUSATE SODIUM 100 MG CAP PO ONE (19:15)
[2021-06-08] MEDS ORDERED: POLYETHYLENE (MIRALAX) 17 GM PACK ONE (19:15)
[2021-06-08] MEDS: ALPRAZolam 0.25 MG TABLET PO PRN (19:18)
[2021-06-08] MEDS: DOCUSATE SODIUM 100 MG CAP PO SCH (19:18)
[2021-06-08] MEDS: POLYETHYLENE (MIRALAX) 17 GM PACK PO SCH (19:19)
[2021-06-08] MEDS ORDERED: ENOXAPARIN INJ 40 MG/0.4 ML SYR SQ SCH (21:00)
[2021-06-08] MEDS: HYDROCODONE/ACETAMOPHEN 5/325MG TAB PO PRN (21:09)
[2021-06-09] MEDS: HYDROCODONE/ACETAMOPHEN 5/325MG TAB PO PRN ×2 (02:56→20:22)
[2021-06-09] MEDS: CALCIUM CARBONATE 500 MG CHEWABLE TAB PO PRN (04:31)
[2021-06-09] MEDS: ALPRAZolam 0.25 MG TABLET PO PRN ×3 (05:05→20:22)
[2021-06-09 07:39] LABS: Hematocrit (blood only) 45.4 % (37-47); Hemoglobin 14.5 g/dL (12.0-16.0); Mean Corpuscular Hemoglobin 31.5 pg (25-34); Mean Corpuscular Hgb Conc 31.9 g/dL (32-36); Mean Corpuscular Volume 98.5 fL (80-100); Mean Platelet Volume 10.9 fL (7.4-10.4); Platelet Count 368 K/uL (130-400); RDW Coefficient of Variation 14.3 % (11.5-14.5); RDW Standard Deviation 50.5 fL (36.4-46.3); Red Blood Count 4.61 M/uL (4.2-5.4); White Blood Count 8.98 K/uL (4.8-10.8)
[2021-06-09 08:09] LABS: BUN Creatinine Ratio 17.2 (10-20); Calcium 9.7 mg/dl (8.5-10.1); Creatinine Clr Calc Pharmacy 42.1 ml/min; Est GFR (African American) 72.5 ml/min; Est GFR (Non-African American) 62.5 ml/min; Magnesium 2.4 mg/dl (1.8-2.4); Potassium 3.9 mmol/L (3.5-5.1)
--- NOTE | 2021-06-09 08:35 | Cardiology Consultation ---
Date of Consultation June 09, 2021 Assessment & Plan (1) Acute systolic heart failure: Patient with recent echo (last week at [facility]) demonstrating interval decline in LVEF at 25%, previously 45% per outside records post TAVR. Underlying LBBB likely contributing. Patient with b/l pleural effusions Recommend ongoing diuresis today with Furosemide 40 mg IV BID Supplement potassium Monitor I+O's Monitor renal function Continue metoprolol and titrate dose to 25 mg daily Previously intolerant of KULDIP/ARB, but may need to retry Plans for future BIV AICD implantation once fluid status has improved (inpatient/outpatient?) (2) History of transcatheter aortic valve replacement (TAVR): Stable valvular measurements per recent echo (3) Cardiomyopathy: Dilated cardiomyopathy Plans for future BIV AICD (4) LBBB (left bundle branch block): (5) HTN (hypertension): Continue meds. controlled. Case discussed with Dr. Smith Continue diuresis. titrate meds as tolerated. Future BIV AICD to be considered once fluid status has improved Supervising Physician Co-Signing Physician Notes Cardiology Attending Addendum: Patient seen and a history and physical was personally performed. Agree with findings and plans as outlined by Kylah Albert PA-C with additions as follows. S: SOB perhaps improved, however, pt once again anxious, asked when she can be discharged. Exam: Mildy decreased BS at the bases Impression: As noted above, h/o TAVR, severe symptmatic LV systolic dysfunction, acute on chronic heart failure with reduced ejection fraction, LBBB. Plan: Continue IV furosemide, as fluid retention was refractory to change in oral diuretic as outpatient. Change timing to furosemide 40 mg at 7 am, and 1400. Titrate metoprolol. EP consult , likely as outpatient, for consideration of [employer] device. History of Present Illness Reason for Consultation: CHF Requesting Physician: LAINE Ray Attending Physician: Dr. Smith History of Present Illness Patient is a 76 year old female who recently established with [facility], previously followed by Cardiology in [place] ([facility]) and [place] [facility] (Dr. Underwood). She has a history of severe aortic stenosis, leading to TAVR in Oct 2019 at [facility]. Preop cath demonstrated moderate non obstructive CAD within the LAD at 50% stenosis. She also had a dilated cardiomyopathy at that time with LVEF 20-30%, improved to 45-49% post surgery. There was also mention of severe pulmonary hypertension at the time. Post op TAVR she developed LBBB and has had conduction delay since that time. She has intolerance to statins including atorvastatin and rosuvastatin per records and declined use of PCSK9 inhib. She was previously on losartan, but stopped due to "side effects". She was also trialed on metoprolol and possibly carvedilol, but these were stopped per patient preference. Other history includes hypertension, prior tobacco abuse (possible COPD), and significant anxiety. Several weeks ago she established as a new patient with [facility] for second opinion and ongoing SOB. Metoprolol succinate 12.5 mg daily was initiated for HR support and cardiomyopathy. She called the office several days later with complaints of orthopnea, PND. Diuretics were increased. She was subsequently evaluated in ER in [place] and apparently treated for pneumonia. In the interim, she was scheduled for updated echo, completed last week at [facility] demonstrating interval decline in LVEF to 25%. Patient declined admission at that time. Over the last several days patient reported worsening SOB with exertion and at rest, with orthopnea at night. No chest pain. No edema. No sudden weight gain reported. She subsequently came to ER for evaluation. Upon arrival, chest xray demonstrated pulm vascular congestion. Chest CT was negative for PE, but demonstrated b/l pleural effusions. She was started on IV lasix and admitted for further evaluation. Cardiac enzymes unremarkable. BNP was elevated. At time of consult, patient resting in bed. Tearful. Does not want to stay in the hospital past tomorrow. Notes great improvement in her SOB overnight compared to admission. Urinating frequently. No chest pain. Slept better last night without significant orthopnea, although head of bed was elevated to sleep. Denies edema. No fever or chills. Allergies Allergy/AdvReac Type Severity Reaction Status Date / Time rosuvastatin Allergy Severe Chills Unverified 06/08/21 14:54 ergocalciferol (vitamin D2) Allergy Unknown Unknown Unverified 06/08/21 16:56 [From Vitamin D2] ibuprofen Allergy Unknown Unknown Unverified 06/08/21 16:56 metoclopramide [From Reglan] Allergy Unknown Unknown Unverified 06/08/21 16:56 naproxen Allergy Unknown Unknown Unverified 06/08/21 16:56 Penicillins Allergy Unknown Unknown Unverified 06/08/21 16:56 tamsulosin Allergy Unknown Unknown Unverified 06/08/21 16:56 triamcinolone Allergy Unknown Unknown Unverified 06/08/21 16:56 Home Medications Medication Instructions Recorded Confirmed Type alprazolam 0.25 mg tablet 0.25 mg PO TID PRN 06/08/21 06/08/21 History aspirin 81 mg tablet,delayed 81 mg PO DAILY 06/08/21 06/08/21 History release (Aspirin Low Dose) furosemide 40 mg tablet 40 mg PO QAM 06/08/21 06/08/21 History furosemide 40 mg tablet (Lasix) 20 mg PO QDL 06/08/21 06/08/21 History hydrocodone 5 mg-acetaminophen 325 1 tab PO BID PRN 06/08/21 06/08/21 History mg tablet metoprolol succinate 25 mg capsule 12.5 mg PO DAILY 06/08/21 06/08/21 History sprinkle, ext. release 24 hr potassium chloride 20 mEq 40 meq PO DAILY 06/08/21 06/08/21 History tablet,extended release spironolactone 25 mg tablet 12.5 mg PO DAILY 06/08/21 06/08/21 History Patient History Medical History Anxiety CAD (coronary artery disease) Preop TAVR cath 2019-moderate nonobstructive CAD Cardiomyopathy At the time of TAVR, EF 20 to 30%, improved to 45 to 49% post surgery History of transcatheter aortic valve replacement (TAVR) HTN (hypertension) LBBB (left bundle branch block) Family History Mother No problems noted. Father No problems noted. Social History Smoking Status: Former smoker Hx Alcohol Use: No Hx Substance Use: No Preferred Language: Danish Communication Ability: Effective Beliefs That Will Affect Care: None Other Information That Helps Us Care for You: No Feels Safe at Home: Yes Assistive Devices: Cane and Glasses Review of Systems Review of Systems: All systems reviewed & are unremarkable except as noted in HPI & below Physical Exam Constitutional: WD/WN, vitals as above Eyes: PERRL, conjunctivae normal, anicteric sclerae Neck: trachea midline, no thyromegaly Respiratory: normal respiratory effort; no labored breathing Auscultation: + diminished lung sounds (bases b/l); no crackles Cardiovascular: Rate/Rhythm: regular rate and regular rhythm Heart Sounds: normal S1, normal S2 and + murmur (II/ systolic murmur) Extremities: no edema Musculoskeletal: no cyanosis or clubbing, extremities motor strength 5/5 Skin: no rashes, warm and dry Neurologic: PERRL, EOMI, accommodation nl, no face palsy, no dysarthria Psychiatric: Orientation: alert and oriented x 3 Mood: + depressed mood Results & Data ([facility]) Vital Signs (Past 12 Hours) Vital Signs Temp Pulse Pulse Resp BP Pulse Ox 06/09/21 08:00 36.5 C 76 19 105/69 94 06/09/21 07:52 73 06/09/21 04:40 37 C 60 18 118/64 92 06/08/21 23:26 36.3 C L 94 H 18 96/54 L 93 Laboratory Results 06/09/21 06/09/21 06/08/21 Range/Units 07:16 07:16 15:26 WBC 8.98 (4.8-10.8) K/uL RBC 4.61 (4.2-5.4) M/uL Hgb 14.5 (12.0-16.0) g/dL Hct 45.4 (37-47) % MCV 98.5 (80-100) fL MCH 31.5 (25-34) pg MCHC 31.9 L (32-36) g/dL RDW Std Deviation 50.5 H (36.4-46.3) fL RDW Coeff of Carol 14.3 (11.5-14.5) % Plt Count 368 (130-400) K/uL MPV 10.9 H (7.4-10.4) fL Immature Gran % (Auto) % Neut % (Auto) % Lymph % (Auto) % Lee % (Auto) % Eos % (Auto) % Baso % (Auto) % Neut # (Auto) (1.4-6.5) K/uL Lymph # (Auto) (1.2-3.4) K/uL Lee # (Auto) (0.11-0.59) K/uL Eos # (Auto) (0-0.5) K/uL Baso # (Auto) (0-0.2) K/uL Immature Gran # (Auto) (0.00-0.02) K/uL PT (9.0-12.0) Seconds INR (0.9-1.1) APTT (21.0-31.0) Seconds PTT Ratio Sodium 136 (136-145) mmol/L Potassium 3.9 (3.5-5.1) mmol/L Chloride 100 (98-107) mmol/L Carbon Dioxide 30 (21-32) mmol/L Anion Gap 7.0 (3-11) BUN 15 (7-18) mg/dl Creatinine 0.90 (0.6-1.2) mg/dl Est Cr Clr Drug Dosing 42.1 ml/min Est GFR ( Amer) 72.5 ml/min Est GFR (Non-Af Amer) 62.5 ml/min BUN/Creatinine Ratio 17.2 (10-20) Glucose 107 H (70-99) mg/dl Calcium 9.7 (8.5-10.1) mg/dl Phosphorus (2.5-4.9) mg/dl Magnesium 2.4 (1.8-2.4) mg/dl Total Bilirubin (0.2-1) mg/dl Direct Bilirubin (0-0.2) mg/dl AST (15-37) U/L ALT (12-78) U/L Alkaline Phosphatase (45-117) U/L Troponin I (0-0.045) ng/ml NT-Pro-B Natriuret Pep (0-900) pg/ml Total Protein (6.4-8.2) gm/dl Albumin (3.4-5.0) gm/dl Globulin (2.5-4.0) gm/dl Albumin/Globulin Ratio (0.9-2) Lipase (73-393) U/L TSH (0.300-4.500) uIu/ml Urine Color Yellow Urine Appearance Clear (Clear) Urine pH 7.5 (4.5-7.5) Ur Specific [place] 1.007 (1.000-1.030) Urine Protein Negative (Negative) Urine Glucose (UA) Negative (Negative) Urine Ketones Negative (Negative) Urine Blood Negative (Negative) Urine Nitrite Negative (Negative) Urine Bilirubin Negative (Negative) Urine Urobilinogen Negative (Negative) Ur Leukocyte Esterase Negative (Negative) COVID-19 Eval Order SARS-CoV-2 (PCR) (Negative) 06/08/21 06/08/21 06/08/21 Range/Units 12:25 12:25 12:25 WBC 9.98 (4.8-10.8) K/uL RBC 4.61 (4.2-5.4) M/uL Hgb 14.8 (12.0-16.0) g/dL Hct 45.9 (37-47) % MCV 99.6 (80-100) fL MCH 32.1 (25-34) pg MCHC 32.2 (32-36) g/dL RDW Std Deviation 52.0 H (36.4-46.3) fL RDW Coeff of Carol 14.3 (11.5-14.5) % Plt Count 360 (130-400) K/uL MPV 11.0 H (7.4-10.4) fL Immature Gran % (Auto) 0.1 % Neut % (Auto) 68.7 % Lymph % (Auto) 23.7 % Lee % (Auto) 6.8 % Eos % (Auto) 0.5 % Baso % (Auto) 0.2 % Neut # (Auto) 6.85 H (1.4-6.5) K/uL Lymph # (Auto) 2.37 (1.2-3.4) K/uL Lee # (Auto) 0.68 H (0.11-0.59) K/uL Eos # (Auto) 0.05 (0-0.5) K/uL Baso # (Auto) 0.02 (0-0.2) K/uL Immature Gran # (Auto) 0.01 (0.00-0.02) K/uL PT (9.0-12.0) Seconds INR (0.9-1.1) APTT (21.0-31.0) Seconds PTT Ratio Sodium (136-145) mmol/L Potassium (3.5-5.1) mmol/L Chloride (98-107) mmol/L Carbon Dioxide (21-32) mmol/L Anion Gap (3-11) BUN (7-18) mg/dl Creatinine (0.6-1.2) mg/dl Est Cr Clr Drug Dosing ml/min Est GFR ( Amer) ml/min Est GFR (Non-Af Amer) ml/min BUN/Creatinine Ratio (10-20) Glucose (70-99) mg/dl Calcium (8.5-10.1) mg/dl Phosphorus (2.5-4.9) mg/dl Magnesium (1.8-2.4) mg/dl Total Bilirubin (0.2-1) mg/dl Direct Bilirubin (0-0.2) mg/dl AST (15-37) U/L ALT (12-78) U/L Alkaline Phosphatase (45-117) U/L Troponin I (0-0.045) ng/ml NT-Pro-B Natriuret Pep (0-900) pg/ml Total Protein (6.4-8.2) gm/dl Albumin (3.4-5.0) gm/dl Globulin (2.5-4.0) gm/dl Albumin/Globulin Ratio (0.9-2) Lipase (73-393) U/L TSH (0.300-4.500) uIu/ml Urine Color Urine Appearance (Clear) Urine pH (4.5-7.5) Ur Specific [place] (1.000-1.030) Urine Protein (Negative) Urine Glucose (UA) (Negative) Urine Ketones (Negative) Urine Blood (Negative) Urine Nitrite (Negative) Urine Bilirubin (Negative) Urine Urobilinogen (Negative) Ur Leukocyte Esterase (Negative) COVID-19 Eval Order Covid19 at [facility] SARS-CoV-2 (PCR) NEGATIVE (Negative) 06/08/21 06/08/21 Range/Units 12:24 12:24 WBC (4.8-10.8) K/uL RBC (4.2-5.4) M/uL Hgb (12.0-16.0) g/dL Hct (37-47) % MCV (80-100) fL MCH (25-34) pg MCHC (32-36) g/dL RDW Std Deviation (36.4-46.3) fL RDW Coeff of Carol (11.5-14.5) % Plt Count (130-400) K/uL MPV (7.4-10.4) fL Immature Gran % (Auto) % Neut % (Auto) % Lymph % (Auto) % Lee % (Auto) % Eos % (Auto) % Baso % (Auto) % Neut # (Auto) (1.4-6.5) K/uL Lymph # (Auto) (1.2-3.4) K/uL Lee # (Auto) (0.11-0.59) K/uL Eos # (Auto) (0-0.5) K/uL Baso # (Auto) (0-0.2) K/uL Immature Gran # (Auto) (0.00-0.02) K/uL PT 10.1 (9.0-12.0) Seconds INR 1.0 (0.9-1.1) APTT 26.0 (21.0-31.0) Seconds PTT Ratio 1.0 Sodium 137 (136-145) mmol/L Potassium 4.4 (3.5-5.1) mmol/L Chloride 102 (98-107) mmol/L Carbon Dioxide 29 (21-32) mmol/L Anion Gap 7.0 (3-11) BUN 16 (7-18) mg/dl Creatinine 0.84 (0.6-1.2) mg/dl Est Cr Clr Drug Dosing 45.2 ml/min Est GFR ( Amer) 78.8 ml/min Est GFR (Non-Af Amer) 68.0 ml/min BUN/Creatinine Ratio 18.5 (10-20) Glucose 111 H (70-99) mg/dl Calcium 9.9 (8.5-10.1) mg/dl Phosphorus 3.2 (2.5-4.9) mg/dl Magnesium 2.4 (1.8-2.4) mg/dl Total Bilirubin 0.9 (0.2-1) mg/dl Direct Bilirubin 0.2 (0-0.2) mg/dl AST 39 H (15-37) U/L ALT 54 (12-78) U/L Alkaline Phosphatase 101 (45-117) U/L Troponin I 0.030 (0-0.045) ng/ml NT-Pro-B Natriuret Pep 4935 H (0-900) pg/ml Total Protein 8.1 (6.4-8.2) gm/dl Albumin 4.0 (3.4-5.0) gm/dl Globulin 4.1 H (2.5-4.0) gm/dl Albumin/Globulin Ratio 1.0 (0.9-2) Lipase 87 (73-393) U/L TSH 2.000 (0.300-4.500) uIu/ml Urine Color Urine Appearance (Clear) Urine pH (4.5-7.5) Ur Specific [place] (1.000-1.030) Urine Protein (Negative) Urine Glucose (UA) (Negative) Urine Ketones (Negative) Urine Blood (Negative) Urine Nitrite (Negative) Urine Bilirubin (Negative) Urine Urobilinogen (Negative) Ur Leukocyte Esterase (Negative) COVID-19 Eval Order SARS-CoV-2 (PCR) (Negative) Diagnostic Findings EKG on admission reviewed: NSR with LAD Conduction delay noted, consistent with LBBB. Chest xray on admission reviewed: IMPRESSION: 1. Cardiomegaly 2. Small right pleural effusion with associated right basilar atelectasis/consolidation 3. Mild elevation of interstitium. Correlate clinically for evidence of mild pulmonary vascular congestion Chest CTA report reviewed, from admission: IMPRESSION: 1. No evidence of acute pulmonary embolism 2. Bilateral pleural effusions right greater than left 3. Right basilar opacities likely atelectatic 4. Motion degraded study. Outpatient echo report reviewed dated June 03, 2021: Interpretation Summary The examination is adequate to evaluate the referral indication. Sinus tachycardia 100-108 beats per minute was present during the echocardiogram study. The LV wall thickness is normal. The septal motion is abnormal consistent with left bundle branch block. The remaining left ventricular wall segments are moderately hypokinetic. The qualitative LV ejection fraction is 25-29% (severely reduced). The left atrium is severely enlarged. The left ventricular diastolic function is severely abnormal (grade III). The patient is status post TAVR with Cyril type prosthetic valve. Mild intravalvular aortic regurgitation is present. The aortic valve prosthesis systolic gradients are normal for this type prosthesis. Mild tricuspid regurgitation is present. Moderate to severe pulmonary hypertension is present. Pulmonary artery systolic pressure is estimated be 55 millimeters Hg. The proximal ascending aorta is mildly dilated with diameter of 3.8 cm. There is no prior study available at this institution for direct comparison. Compared to the report of the prior study performed November, at [facility], the left ventricular ejection fraction was reported be 45 to 49% at that time. The peak transthoracic continue fluid Doppler velocity was reported to be 2.1 meters/second at that time as compared to 2.4 meters/second on the present study which is relatively similar. Medications Administered Medications alprazolam 0.25 mg tablet 0.25 mg PO TID PRN 06/08/21 [History Confirmed 06/08/21] aspirin 81 mg tablet,delayed release (Aspirin Low Dose) 81 mg PO DAILY 06/08/21 [History Confirmed 06/08/21] furosemide 40 mg tablet 40 mg PO QAM 06/08/21 [History Confirmed 06/08/21] furosemide 40 mg tablet (Lasix) 20 mg PO QDL 06/08/21 [History Confirmed 06/08/21] hydrocodone 5 mg-acetaminophen 325 mg tablet 1 tab PO BID PRN 06/08/21 [History Confirmed 06/08/21] metoprolol succinate 25 mg capsule sprinkle, ext. release 24 hr 12.5 mg PO DAILY 06/08/21 [History Confirmed 06/08/21] potassium chloride 20 mEq tablet,extended release 40 meq PO DAILY 06/08/21 [History Confirmed 06/08/21] spironolactone 25 mg tablet 12.5 mg PO DAILY 06/08/21 [History Confirmed 06/08/21] Home Medications Acetaminophen (Acetaminophen 325 Mg Tab) 650 mg PO Q4H PRN PRN Reason: Pain or Fever Stop: 07/08/21 16:47 Hydrocodone Bitart/Acetaminophen (Hydrocodone/Acetamophen 5/325mg Tab) 1 tab PO BID PRN PRN Reason: Pain Stop: 06/22/21 16:47 Last Admin: 06/09/21 02:56 Dose: 1 tab Documented by: Alprazolam (Alprazolam 0.25 Mg Tablet) 0.25 mg PO TID PRN PRN Reason: Anxiety Stop: 07/08/21 16:47 Last Admin: 06/09/21 05:05 Dose: 0.25 mg Documented by: Aspirin (Aspirin 81 Mg Ectab) 81 mg PO DAILY SILVANO Stop: 07/09/21 08:59 Calcium Carbonate (Calcium Carbonate 500 Mg Chewable Tab) 500 mg PO QID PRN PRN Reason: Indigestion Stop: 07/09/21 04:26 Last Admin: 06/09/21 04:31 Dose: 500 mg Documented by: Docusate Sodium (Docusate Sodium 100 Mg Cap) 100 mg PO BID SILVANO Stop: 07/08/21 20:59 Last Admin: 06/08/21 19:18 Dose: 100 mg Documented by: Enoxaparin Sodium (Enoxaparin Inj 40 Mg/0.4 Ml Syr) 40 mg SQ Q24H SILVANO Stop: 07/08/21 20:59 Last Admin: 06/08/21 19:19 Dose: 40 mg Documented by: Furosemide 40 mg/ Syringe 4 mls @ 4 mls/min IV BID SILVANO Stop: 07/09/21 08:59 Metoprolol Succinate (Metoprolol Succ 25mg Ext Rel Tab) 12.5 mg PO DAILY [facility] Stop: 07/09/21 08:59 Polyethylene Glycol (Polyethylene (Miralax) 17 Gm Pack) 17 gm PO BID SILVANO Stop: 07/08/21 20:59 Last Admin: 06/08/21 19:19 Dose: 17 gm Documented by: Potassium Chloride (Potassium Chloride Crtab 20 Meq Tabcr) 40 meq PO DAILY [facility] Stop: 07/09/21 08:59 Current Inpatient Medications Acetaminophen (Acetaminophen 325 Mg Tab) 650 mg PO Q4H PRN PRN Reason: Pain or Fever Stop: 07/08/21 16:47 Hydrocodone Bitart/Acetaminophen (Hydrocodone/Acetamophen 5/325mg Tab) 1 tab PO BID PRN PRN Reason: Pain Stop: 06/22/21 16:47 Last Admin: 06/09/21 02:56 Dose: 1 tab Documented by: Alprazolam (Alprazolam 0.25 Mg Tablet) 0.25 mg PO TID PRN PRN Reason: Anxiety Stop: 07/08/21 16:47 Last Admin: 06/09/21 05:05 Dose: 0.25 mg Documented by: Aspirin (Aspirin 81 Mg Ectab) 81 mg PO DAILY [facility] Stop: 07/09/21 08:59 Calcium Carbonate (Calcium Carbonate 500 Mg Chewable Tab) 500 mg PO QID PRN PRN Reason: Indigestion Stop: 07/09/21 04:26 Last Admin: 06/09/21 04:31 Dose: 500 mg Documented by: Docusate Sodium (Docusate Sodium 100 Mg Cap) 100 mg PO BID SILVANO Stop: 07/08/21 20:59 Last Admin: 06/08/21 19:18 Dose: 100 mg Documented by: Enoxaparin Sodium (Enoxaparin Inj 40 Mg/0.4 Ml Syr) 40 mg SQ Q24H SILVANO Stop: 07/08/21 20:59 Last Admin: 06/08/21 19:19 Dose: 40 mg Documented by: Furosemide 40 mg/ Syringe 4 mls @ 4 mls/min IV BID SILVANO Stop: 07/09/21 08:59 Metoprolol Succinate (Metoprolol Succ 25mg Ext Rel Tab) 12.5 mg PO DAILY SILVANO Stop: 07/09/21 08:59 Polyethylene Glycol (Polyethylene (Miralax) 17 Gm Pack) 17 gm PO BID SILVANO Stop: 07/08/21 20:59 Last Admin: 06/08/21 19:19 Dose: 17 gm Documented by: Potassium Chloride (Potassium Chloride Crtab 20 Meq Tabcr) 40 meq PO DAILY SILVANO Stop: 07/09/21 08:59 (1) Cardiomyopathy Cardiomyopathy type: unspecified Qualified Code(s): I42.9 - Cardiomyopathy, unspecified
[2021-06-09] MEDS ORDERED: METOPROLOL SUCC 25MG EXT REL TAB PO SCH (09:00)
[2021-06-09] MEDS ORDERED: FUROSEMIDE 40 MG in SYRINGE 0 ML IV SCH (09:00)
[2021-06-09] MEDS: POTASSIUM CHLORIDE CRTAB 20 MEQ TABCR PO SCH (09:49)
[2021-06-09] MEDS: POLYETHYLENE (MIRALAX) 17 GM PACK PO SCH ×2 (09:49→20:11)
[2021-06-09] MEDS: DOCUSATE SODIUM 100 MG CAP PO SCH ×2 (09:49→20:23)
[2021-06-09] MEDS: ASPIRIN 81 MG ECTAB PO SCH (10:53)
[2021-06-09] MEDS ORDERED: METOPROLOL SUCC 25MG EXT REL TAB PO ONE (11:00)
--- NOTE | 2021-06-09 11:52 | Hospitalist Progress Note ---
Date of Service June 09, 2021 Assessment & Plan (1) Cardiomyopathy: (2) History of transcatheter aortic valve replacement (TAVR): Plan: per LAINE Kaye's notes: -Patient presenting from home with reports of worsening shortness of breath x 1 month -History of dilated cardiomyopathy diagnosed in 2019 at the time of TAVR with the EF 20 to 30%, EF improved to 45 to 49% after surgery. Recently established with cardiology at [facility], repeat echocardiogram on 06/03/2021 showed EF 25 to 29%. -Saturating well on room air, CTA chest shows bilateral pleural effusions, right greater than left -Hold home furosemide and spironolactone and start Lasix 40 mg IV twice daily 06/09/21 negative 1L fluid balance so far continue Lasix 40mg IV New Onset Atrial Fibrillation noted in the afternoon today Metoprolol increased to 25mg po daily Amiodarone drip started Eliquis also started (3) CAD (coronary artery disease): Plan: -Cardiac cath 2018 showed moderate nonobstructive CAD -Continue aspirin and beta-sky (patient is statin intolerant) (4) HTN (hypertension): Plan: -BP controlled, continue metoprolol (5) Anxiety: Plan: patient declines inpatient Psych eval continue Xanax (6) DVT prophylaxis: Plan: -Eliquis Disposition pending will need PT/OT eval once cardiac status is stable Plan: plan of care discussed with patient in detail and at length all questions answered she is understanding, agreeable, comfortable with the plan of care Admission and Anticipated Discharge Date Admission Date: June 08, 2021 Subjective ff up for acute systolic CHF exacerbation, etc seen resting in bed, sitting up states she feels tired breathing seems to be improving, worse with exertion no chest pain, palpitations, dizziness no other symptoms Review of Systems Review of Systems: all noted and negative, except for above Physical Exam Physical Exam: General- oriented x 3, not in distress, speaks in sentences with no effort or accessory muscle use Eyes- anicteric Neck- no JVD Lungs- (+) rales at the bases, r>l Heart- normal rate, regular rhythm; no murmurs Abdomen- normal bowel sounds, nondistended, soft, nontender Extremities- no pretibial edema, no calf tenderness Neuro- alert, oriented x 3; no gross focal neurologic deficits Skin- warm & dry Results & Data Results & Data ([facility]) Vital Signs (Past 12 Hours) Vital Signs Temp Pulse Pulse Resp BP Pulse Ox 06/09/21 08:00 36.5 C 76 19 105/69 94 06/09/21 07:52 73 06/09/21 04:40 37 C 60 18 118/64 92 all noted and reviewed including below (1) Cardiomyopathy Cardiomyopathy type: unspecified Qualified Code(s): I42.9 - Cardiomyopathy, unspecified
[2021-06-09] MEDS: FUROSEMIDE 40 MG in SYRINGE 0 ML IV SCH (15:34)
[2021-06-09] MEDS ORDERED: 0.2 MICRON FILTER SET 1 EA IV ONE (16:21)
[2021-06-09] MEDS ORDERED: AMIODARONE / D5W 150 MG/100 ML BAG IV STA (16:21)
[2021-06-09] MEDS ORDERED: STAT IV Infusion **Titration per Protocol STA (16:21)
[2021-06-09] MEDS ORDERED: AMIODARONE IV BOLUS & DRIP IV STA (16:21)
--- NOTE | 2021-06-09 16:25 | Communication Note ---
Date of Service: June 09, 2021 Pt seen in acute reassessment, having gone in to atrial fibrillation in the 120s at 15:21. Patient declines additional metoprolol orally. The AF is a new diagnosis for her. She denies palpitations or worsening SOB. Given her Low LVEF, I predict this will be tolerated poorly as time goes on. Her only current complain is consitpations. Plan: EKG now, and in Am. Rhythm control with amiodarone infusion. Stroke prevention with Eliquis. Per most recent treatment guidelines Eliquis is indicated in settong of AF, bioprosthetic aortic valve that has been in place for > 3 months. Constipation-has already received miralax and colace. One time dose of lactulose.
[2021-06-09] MEDS ORDERED: AMIODARONE / D5W 360 MG/200 ML BAG IV ONE (16:30)
[2021-06-09] MEDS ORDERED: LACTULOSE SYRUP 20 GM/30 ML UDC PO ONE (16:30)
[2021-06-09] MEDS ORDERED: APIXABAN 5 MG TABLET PO ONE (16:30)
[2021-06-09] MEDS: METOPROLOL TARTRATE 1 MG/ML VIAL IV STA ×2 (17:26→17:35)
[2021-06-09] MEDS ORDERED: AMIODARONE / D5W 360 MG/200 ML BAG IV SCH (22:30)
[2021-06-10] MEDS: CALCIUM CARBONATE 500 MG CHEWABLE TAB PO PRN (03:16)
[2021-06-10] MEDS ORDERED: APIXABAN 5 MG TABLET PO SCH (05:00)
[2021-06-10] MEDS: ALPRAZolam 0.25 MG TABLET PO PRN (06:11)
[2021-06-10] MEDS: HYDROCODONE/ACETAMOPHEN 5/325MG TAB PO PRN ×2 (06:11→12:23)
[2021-06-10] MEDS: FUROSEMIDE 40 MG in SYRINGE 0 ML IV SCH (06:11)
[2021-06-10 08:28] LABS: BUN Creatinine Ratio 18.4 (10-20); Calcium 9.5 mg/dl (8.5-10.1); Creatinine Clr Calc Pharmacy 42.9 ml/min; Est GFR (African American) 74.5 ml/min; Est GFR (Non-African American) 64.3 ml/min; Potassium 3.7 mmol/L (3.5-5.1)
[2021-06-10] MEDS: DOCUSATE SODIUM 100 MG CAP PO SCH (08:46)
[2021-06-10] MEDS ORDERED: METOPROLOL SUCC 25MG EXT REL TAB PO SCH (09:00)
[2021-06-10] MEDS: POTASSIUM CHLORIDE CRTAB 20 MEQ TABCR PO SCH (09:57)
[2021-06-10] MEDS: ASPIRIN 81 MG ECTAB PO SCH (09:58)
[2021-06-10] MEDS: POLYETHYLENE (MIRALAX) 17 GM PACK PO SCH (09:59)
--- NOTE | 2021-06-10 10:52 | Cardiology Progress Note ---
Date of Service June 10, 2021 Assessment & Plan (1) Acute systolic heart failure: Plan: Patient with recent echo (last week at [facility]) demonstrating interval decline in LVEF at 25%, previously 45% per outside records post TAVR. Underlying LBBB likely contributing. Patient with b/l pleural effusions Recommend ongoing diuresis today with Furosemide 40 mg IV BID, however, patient declines. I had referred her for hospitalization based on her symptoms and abnormal echocardiogram a week ago and she declined. She presented to the ED this week, but on arrival of the admission team , negotiation was necessary to convince patient to stay, and Ms Albert and I both had to convince her to remain in hospital yesterday. Will proceed with discharge today per patient's preference. She is not endangering herself by going home, but I do have concerns that she has already not improved with outpatient treatment. As outpatient , she has been taking furosemide 20 mg BID, and KCl 20 meq BID, toprol 12.5 mg daily, and spironolactone (if actually taking). Discharge on the above ,with plans to take torsemide 10 mg daily instead of the furosemide. Keep outpatient follow up as planned. Based on appearance of echocardiogram , it appears she would benefit from [employer] device, but her anxiety is posing significant barriers to care. I would anticipate that this situation is not acute as she has had several other cardiology providers , with several other practices ([facility]) and now our group. (2) History of transcatheter aortic valve replacement (TAVR): Plan: Stable valvular measurements per recent echo (3) Cardiomyopathy: (4) LBBB (left bundle branch block): (5) HTN (hypertension): Admission and Anticipated Discharge Date Admission Date: June 09, 2021 Subjective Patient seen in cardiology follow up. She is eager for discharge. She is unable to cope with being in the hospital despite ongoing treatment with alprazolam for her chronic anxiety. Telemetry reveals SR with frequent PACs most recent rate in the 90s. Physical Exam Physical Exam: Temp Pulse Resp BP Pulse Ox 36.4 C L 77 17 113/71 97 06/10/21 07:45 06/10/21 08:00 06/10/21 07:45 06/10/21 07:45 06/10/21 07:45 Constitutional: no acute distress Respiratory: Auscultation: + diminished lung sounds (mildly decreased BS at the bases ); no crackles and no rales Cardiovascular: Rate/Rhythm: regular rhythm Heart Sounds: no murmur Extremities: no edema Gastrointestinal (Abdomen): normal bowel sounds, soft, nontender, no hepatosplenomegaly Neurologic: PERRL, EOMI, accommodation nl, no face palsy, no dysarthria Results & Data ([facility]) Vital Signs (Past 12 Hours) Vital Signs Temp Pulse Pulse Resp BP Pulse Ox 06/10/21 08:00 77 06/10/21 07:45 36.4 C L 72 17 113/71 97 06/10/21 04:00 36.5 C 83 18 107/63 95 06/09/21 23:52 72 06/09/21 22:51 36.6 C 68 18 91/52 L 95 Laboratory Results Comprehensive Metabolic Panel 06/10/21 Range/Units 07:37 Sodium 137 (136-145) mmol/L Potassium 3.7 (3.5-5.1) mmol/L Chloride 101 (98-107) mmol/L Carbon Dioxide 31 (21-32) mmol/L BUN 16 (7-18) mg/dl Creatinine 0.88 (0.6-1.2) mg/dl Glucose 128 H (70-99) mg/dl Calcium 9.5 (8.5-10.1) mg/dl Intake and Output 06/09/21 06/10/21 06/10/21 22:59 06:59 14:59 Intake Total 360 / 720 250 / 250 Output Total 801 / 1551 250 / 1551 250 / 250 Balance -441 / -831 -250 / -831 0 / 0 Intake: Oral 360 / 720 250 / 250 Output: Urine 800 / 1550 250 / 1550 250 / 250 # Bowel Movements Other: Weight 58.1 kg Weight Measurement Method Standing Scale (1) Cardiomyopathy Cardiomyopathy type: unspecified Qualified Code(s): I42.9 - Cardiomyopathy, unspecified
--- NOTE | 2021-06-10 10:57 | Hospitalist Progress Note ---
Date of Service June 10, 2021 Assessment & Plan (1) Cardiomyopathy: (2) History of transcatheter aortic valve replacement (TAVR): Plan: Acute on chronic systolic CHF per LAINE Kaye's notes: -Patient presenting from home with reports of worsening shortness of breath x 1 month -History of dilated cardiomyopathy diagnosed in 2019 at the time of TAVR with the EF 20 to 30%, EF improved to 45 to 49% after surgery. Recently established with cardiology at [facility], repeat echocardiogram on 06/03/2021 showed EF 25 to 29%. -Saturating well on room air, CTA chest shows bilateral pleural effusions, right greater than left -Hold home furosemide and spironolactone and start Lasix 40 mg IV twice daily 06/09/21 negative 1L fluid balance so far continue Lasix 40mg IV Concern for New Onset Atrial Fibrillation noted in the afternoon yesterday - then reviewed by cardiology - no concern for Afib by cardiology Metoprolol increased to 25mg po daily Amiodarone drip was initially to be started then DC'ed after further review Eliquis was initially to be started then DC'ed after further review 06/11 -patient eager to be discharged home currently without any shortness of breath, breathing comfortably on room air Discussed her anxiety in detail, however she is not interested in psychiatric evaluation Discussed with cardiology, given that patient cannot cope with being in the hospital and wants to go home, will discharge on torsemide 10 daily, KCl 20 twice daily, Toprol 12.5 daily and home spironolactone She has close follow-ups scheduled (3) CAD (coronary artery disease): Plan: -Cardiac cath 2018 showed moderate nonobstructive CAD -Continue aspirin and beta-sky (patient is statin intolerant) (4) HTN (hypertension): Plan: -BP controlled, continue metoprolol (5) Anxiety: Plan: patient declines inpatient Psych eval continue Xanax (6) DVT prophylaxis: Plan: -Eliquis Disposition: Plan to DC home, close outpt follow up Plan: plan of care discussed with patient in detail and at length all questions answered she is understanding, agreeable, comfortable with the plan of care Admission and Anticipated Discharge Date Admission Date: June 09, 2021 Subjective Pt seen in follow up for acute systolic CHF exacerbation, etc Sitting up in bed in NAD, breathing comfortably on room air states she fees anxious and is eager to be discharged home today Denies chest pain, palpitations, shortness of breath, dizziness Discussed possibility of psychiatry consult, patient is not interested at this time Review of Systems Review of Systems: all noted and negative, except for above Physical Exam Physical Exam: General- oriented x 3, not in distress, speaks in sentences with no effort or accessory muscle use Eyes- anicteric Neck- no JVD Lungs- (+) rales at the bases, r>l Heart- normal rate, regular rhythm; no murmurs Abdomen- normal bowel sounds, nondistended, soft, nontender Extremities- no pretibial edema, no calf tenderness Neuro- alert, oriented x 3; no gross focal neurologic deficits Skin- warm & dry Results & Data Results & Data ([facility]) Vital Signs (Past 12 Hours) Vital Signs Temp Pulse Pulse Resp BP Pulse Ox 06/10/21 08:00 77 06/10/21 07:45 36.4 C L 72 17 113/71 97 06/10/21 04:00 36.5 C 83 18 107/63 95 06/09/21 23:52 72 06/09/21 22:51 36.6 C 68 18 91/52 L 95 Laboratory Results 06/10/21 Range/Units 07:37 Sodium 137 (136-145) mmol/L Potassium 3.7 (3.5-5.1) mmol/L Chloride 101 (98-107) mmol/L Carbon Dioxide 31 (21-32) mmol/L Anion Gap 4.0 (3-11) BUN 16 (7-18) mg/dl Creatinine 0.88 (0.6-1.2) mg/dl Est Cr Clr Drug Dosing 42.9 ml/min Est GFR ( Amer) 74.5 ml/min Est GFR (Non-Af Amer) 64.3 ml/min BUN/Creatinine Ratio 18.4 (10-20) Glucose 128 H (70-99) mg/dl Calcium 9.5 (8.5-10.1) mg/dl Medications Administered Current Inpatient Medications Acetaminophen (Acetaminophen 325 Mg Tab) 650 mg PO Q4H PRN PRN Reason: Pain or Fever Stop: 07/08/21 16:47 Hydrocodone Bitart/Acetaminophen (Hydrocodone/Acetamophen 5/325mg Tab) 1 tab PO BID PRN PRN Reason: Pain Stop: 06/22/21 16:47 Last Admin: 06/10/21 06:11 Dose: 1 tab Documented by: Alprazolam (Alprazolam 0.25 Mg Tablet) 0.25 mg PO TID PRN PRN Reason: Anxiety Stop: 07/08/21 16:47 Last Admin: 06/10/21 06:11 Dose: 0.25 mg Documented by: Aspirin (Aspirin 81 Mg Ectab) 81 mg PO DAILY SILVANO Stop: 07/09/21 08:59 Last Admin: 06/10/21 09:58 Dose: 81 mg Documented by: Calcium Carbonate (Calcium Carbonate 500 Mg Chewable Tab) 500 mg PO QID PRN PRN Reason: Indigestion Stop: 07/09/21 04:26 Last Admin: 06/10/21 03:16 Dose: 500 mg Documented by: Docusate Sodium (Docusate Sodium 100 Mg Cap) 100 mg PO BID SILVANO Stop: 07/08/21 20:59 Last Admin: 06/10/21 08:46 Dose: Not Given Documented by: Furosemide 40 mg/ Syringe 4 mls @ 4 mls/min IV BID@0700,1400 SILVANO Stop: 07/09/21 13:59 Last Admin: 06/10/21 06:11 Dose: 4 mls/min Documented by: Metoprolol Succinate (Metoprolol Succ 25mg Ext Rel Tab) 25 mg PO DAILY SILVANO Stop: 07/10/21 08:59 Last Admin: 06/10/21 09:58 Dose: 25 mg Documented by: Polyethylene Glycol (Polyethylene (Miralax) 17 Gm Pack) 17 gm PO BID SILVANO Stop: 07/08/21 20:59 Last Admin: 06/10/21 09:59 Dose: 17 gm Documented by: Potassium Chloride (Potassium Chloride Crtab 20 Meq Tabcr) 40 meq PO DAILY SILVANO Stop: 07/09/21 08:59 Last Admin: 06/10/21 09:57 Dose: 40 meq Documented by: (1) Cardiomyopathy Cardiomyopathy type: unspecified Qualified Code(s): I42.9 - Cardiomyopathy, unspecified
--- NOTE | 2021-06-10 11:39 | Discharge Summary ---
Date of Service June 10, 2021 Admission HPI Per Admitting Provider 76-year-old female with PMH nonobstructive CAD, history of TAVR, cardiomyopathy, LBBB, anxiety, and other problems listed below who presents the ED for evaluation of shortness of breath. Patient reports worsening shortness of breath over the past 1 month. Patient previously followed with cardiology at [facility], recently establish cardiology care at [facility]. Patient with history of dilated cardiomyopathy at the time of TAVR in 2019 with EF 20-30%, improved to 45 to 49% after surgery. Recent outpatient echo on 06/03/2021 showed EF 25 to 29%, left atrium severely enlarged, grade 3 diastolic dysfunction, moderate to severe pulmonary hypertension. Patient was offered hospitalization however declined at that time. Patient reports progressively worsening shortness of breath for the past 1 month. Sometimes patient feels as though her shortness of breath is due to anxiety. She denies chest pain. No lightheadedness, dizziness, diaphoresis, syncopal events. Denies lower extremity edema and orthopnea. She does not weigh herself on a day-to-day basis. Denies any other recent illnesses, fevers, chills. No abdominal pain, nausea, vomiting, diarrhea. Denies urinary symptoms. In the ED, patient is saturating well on room air. CTA chest is negative for pulmonary embolism however shows bilateral pleural effusions, right greater than left. Patient was given her home dose of alprazolam. Admission Exam Per Admitting Provider Constitutional: WD/WN, vitals as above Eyes: PERRL, conjunctivae normal, anicteric sclerae ENMT: external ear and nose normal, oropharynx normal Respiratory: normal respiratory effort and + respiratory distress Auscultation: + diminished lung sounds (Bilaterally) Cardiovascular: Rate/Rhythm: regular rate and regular rhythm Vessels: normal peripheral pulses Extremities: no edema Gastrointestinal (Abdomen): normal bowel sounds, soft, nontender, no hepatosplenomegaly Musculoskeletal: no cyanosis or clubbing, extremities motor strength 5/5 Skin: no rashes, warm and dry Neurologic: PERRL, EOMI, accommodation nl, no face palsy, no dysarthria Psychiatric: Orientation: alert and oriented x 3 Affect: + anxious affect Principal Diagnosis Acute systolic heart failure, pleural effusions Shortness of breath due to above Discharge Exam General- oriented x 3, not in distress, speaks in sentences with no effort or accessory muscle use Eyes- anicteric Neck- no JVD Lungs- (+) rales at the bases, r>l Heart- normal rate, regular rhythm; no murmurs Abdomen- normal bowel sounds, nondistended, soft, nontender Extremities- no pretibial edema, no calf tenderness Neuro- alert, oriented x 3; no gross focal neurologic deficits Skin- warm & dry Discharge Data Allergies Allergy/AdvReac Type Severity Reaction Status Date / Time rosuvastatin Allergy Severe Chills Unverified 06/08/21 14:54 ergocalciferol (vitamin D2) Allergy Unknown Unknown Unverified 06/08/21 16:56 [From Vitamin D2] ibuprofen Allergy Unknown Unknown Unverified 06/08/21 16:56 metoclopramide [From Reglan] Allergy Unknown Unknown Unverified 06/08/21 16:56 naproxen Allergy Unknown Unknown Unverified 06/08/21 16:56 Penicillins Allergy Unknown Unknown Unverified 06/08/21 16:56 tamsulosin Allergy Unknown Unknown Unverified 06/08/21 16:56 triamcinolone Allergy Unknown Unknown Unverified 06/08/21 16:56 Consultations 06/08/21 14:23 ED Decision to Admit Stat 06/08/21 16:31 Consult Cardiology Routine Ordered Studies 06/08/21 14:21 CT angio chest PE protocol Stat IMPRESSION: 1. No evidence of acute pulmonary embolism 2. Bilateral pleural effusions right greater than left 3. Right basilar opacities likely atelectatic 4. Motion degraded study. Hospital Course (1) Cardiomyopathy: (2) History of transcatheter aortic valve replacement (TAVR): Acute on chronic systolic CHF per LAINE Kaye's notes: -Patient presenting from home with reports of worsening shortness of breath x 1 month -History of dilated cardiomyopathy diagnosed in 2019 at the time of TAVR with the EF 20 to 30%, EF improved to 45 to 49% after surgery. Recently established with cardiology at [facility], repeat echocardiogram on 06/03/2021 showed EF 25 to 29%. -Saturating well on room air, CTA chest shows bilateral pleural effusions, right greater than left -Hold home furosemide and spironolactone and start Lasix 40 mg IV twice daily 06/09/21 negative 1L fluid balance so far continued Lasix 40mg IV Concern for New Onset Atrial Fibrillation noted in the afternoon yesterday - then reviewed by cardiology - no concern for Afib by cardiology Amiodarone drip was initially to be started then DC'ed after further review Shainaqushirley was initially to be started then DC'ed after further review 06/11/21 -patient eager to be discharged home currently without any shortness of breath, breathing comfortably on room air Discussed her anxiety in detail, however she is not interested in psychiatric evaluation Discussed with cardiology, given that patient cannot cope with being in the hospital and wants to go home, will discharge on torsemide 10 daily, KCl 20 twice daily, Toprol 12.5 daily and home spironolactone She has close follow-ups scheduled (3) CAD (coronary artery disease): -Cardiac cath 2019 showed moderate nonobstructive CAD -Continue aspirin and beta-sky (patient is statin intolerant) (4) HTN (hypertension): -BP controlled, continue metoprolol (5) Anxiety: patient declines inpatient Psych eval continue Xanax (6) DVT prophylaxis: -Shainaqushirley Disposition: Plan to DC home, close outpt follow up plan of care discussed with patient in detail and at length all questions answered she is understanding, agreeable, comfortable with the plan of care Total Time Total Time Spent Total Time Spent (In Minutes): 35 Discharge Plan Discharge Items Patient Disposition: Home - Self-Care Reason For Visit: SHORTNESS OF BREATH Discharge Diagnosis: Acute systolic heart failure, pleural effusions Shortness of breath due to above Activity: Per Instructions section Non-emergency contact: Primary Care Provider and Picu Nurse Call non-emergency contact if: you have any medication questions and your symptoms worsen Follow-up/Referrals: Cathy Albert PA-C [Primary Care Provider] - Manuel Friedman D.O. [Outside Practitioners] - 06/19/21 11:00 am Diet: Heart Healthy and Low Sodium (2gm) Fluids: 1800ml (7 cups) Addtl Attending Provider Instructions: Follow-up with your family doctor, the appointment was scheduled for you for June 19. You will also need to follow-up with cardiology, within 2 weeks. In the meantime, recommend low-sodium diet, and fluid restriction. Instead of furosemide/Lasix, take torsemide to 10 mg daily. Continue taking your potassium 20 twice a day, Toprol 12.5 mg daily and your spironolactone. Monitor your weight closely, it is recommended that you weigh yourself every day in the morning at the same time. Make sure to report these numbers and discuss them with your healthcare providers. Addtl Addiction Social Worker Provider Instructions: Call your Primary Care doctor if any of the following symptoms or problems start or get worse: * Shortness of breath or difficulty breathing * Wake up at night short of breath * Chest pain * Cough * Swelling of your hands, feet, or legs * More fatigued or tired with your normal activity * Palpitations - sudden fast heart beats WEIGHT * Weigh yourself every morning after using the bathroom. * Use the same scale. * Wear the same amount of clothing. * Write your weight down on a chart. * Call your Primary Care doctor if you gain more than 2-3 pounds in 1-2 days. MEDICATIONS * Use this discharge instruction sheet for medication instructions. * Take your medications at the time your doctor ordered. * Do not skip a dose of your medicines. * If you miss a dose of medicine, take it as soon as possible, but DO NOT DOUBLE A DOSE. * Read your medicine information when you get home. * Know all of the side effects of your medicine. If in doubt, ask your pharmacist * Call your Primary Care doctor's office if you have any side effects. * Be sure all of your doctors know what medicine and herbs you take (including cold, flu, and herbal medicine). Take the following with you to your follow-up doctor appointments: * Weight Chart * Medication List * List of questions Do not drink excessive alcohol, beer or wine. Pending Studies at Discharge: No Stand-Alone Forms: My [facility] [employer], Smoking Cessation Medications and DC Order Prescriptions: New torsemide 10 mg tablet 10 mg PO DAILY Qty: 30 RF: 0 Continued hydrocodone-acetaminophen 5-325 mg Tablet 1 tab PO BID PRN (Reason: Pain) RF: 0 aspirin [Aspirin Low Dose] 81 mg Tablet,Delayed Release (Dr/Ec) 81 mg PO DAILY RF: 0 spironolactone 25 mg Tablet 12.5 mg PO DAILY RF: 0 alprazolam 0.25 mg Tablet 0.25 mg PO TID PRN (Reason: Anxiety) RF: 0 metoprolol succinate 25 mg Capsule,Sprinkle,Er 24hr 12.5 mg PO DAILY RF: 0 Changed potassium chloride 20 mEq Tablet Extended Release 20 meq PO BID Qty: 0 RF: 0 Discontinued furosemide 40 mg Tablet 40 mg PO QAM RF: 0 furosemide [Lasix] 40 mg Tablet 20 mg PO QDL RF: 0 Discharge Orders: Discharge Order (Routine); Ordered 06/10/21 Ordered By: Jung Lambert Admission Data Admit Date/Time: 06/09/21 18:30 Attending Provider: Jung Lambert Admit Provider: Juancho Hudson Primary Care Provider: Cathy Albert Other Providers: Valdez Smith ; Koffi Wood ; Juancho Hudson
--- NOTE | 2021-06-10 16:13 | Electrocardiogram Report ---
Test Reason : Blood Pressure : / mmHG Vent. Rate : 086 BPM Atrial Rate : 086 BPM P-R Int : 160 ms QRS Dur : 120 ms QT Int : 396 ms P-R-T Axes : 039 -65 095 degrees QTc Int : 473 ms Sinus rhythm with Premature atrial complexes Possible Left atrial enlargement Left axis deviation Inferior infarct (cited on or before 08-JUN-2021) Anterolateral infarct (cited on or before 08-JUN-2021) Non-specific intra-ventricular conduction delay Abnormal ECG When compared with ECG of 08-JUN-2021 11:07, No significant change was found Confirmed by Ervin Burgos ([id number]) on 06/10/2021 4:13:04 PM Referred By: REFERRED SELF Confirmed By:Ervin Burgos
--- NOTE | 2021-06-10 16:22 | Electrocardiogram Report ---
Test Reason : Blood Pressure : / mmHG Vent. Rate : 090 BPM Atrial Rate : 090 BPM P-R Int : 174 ms QRS Dur : 124 ms QT Int : 400 ms P-R-T Axes : 044 -72 089 degrees QTc Int : 489 ms Sinus rhythm with Premature atrial complexes Possible Left atrial enlargement Left axis deviation Inferior infarct (cited on or before 08-JUN-2021) Anterolateral infarct (cited on or before 08-JUN-2021) Non-specific intra-ventricular conduction delay Abnormal ECG When compared with ECG of 09-JUN-2021 16:46, (unconfirmed) No significant change was found Confirmed by Ervin Burgos ([id number]) on 06/10/2021 4:22:22 PM Referred By: REFERRED SELF Confirmed By:Ervin Burgos
== END 2021-06-10 13:31 | disposition home or self-care (01) | DRG 291 ==
LOC: 2S 10:33 → ED 10:33 → 2S 16:21 → SUATTDRO 06-09 18:30